=== PATIENT | female | born 1985 | race Caucasian/White ===

== ENCOUNTER → 2017-02-24 | Outpatient (CLI) | payer OTHER ==
--- NOTE | 2017-02-24 10:09 | MR ---
EXAMINATION TYPE: MR brain wo con DATE OF EXAM: 02/24/2017 7:47 AM COMPARISON: No prior. HISTORY: Migraine without aura, not intractable TECHNIQUE: Multiplanar, multisequence images of the brain and brainstem is performed without the utilization of intravenous contrast. FINDINGS: Diffusion weighted images demonstrate no evidence of a recent infarct or other diffusion ab normality. There is no extra-axial fluid collection or significant white matter signal abnormality. A T2 hyperintense circular left pontine 3 mm area is present that drops peripheral signal on FLAIR im aging compatible with a prominent perivascular space. The ventricular system and cisternal spaces are normal in size and appearance. The brain volume is age appropriate. Midline structures demonstrate normal morphology. The craniocervical junction appears within normal limits. Mucosal thickening is seen within the left maxillary sinus, moderate in degree, and mild in degree of the right maxillary sinus and ethmoid sinuses as well as the left frontal sinus. Mastoid ai r cells are well aerated. The dural venous sinuses appear patent. The globes are intact. IMPRESSION: 1. No evidence of intracranial hemorrhage, midline shift, or infarct. 2. Mild to moderate paranasal sinus disease.
== END | disposition home or self-care (01) ==
LOC: RADMRIMAIN 07:18
PROVIDERS: ATTEND Psychiatry & Neurology Neurology
DX: J32.0 Chronic maxillary sinusitis (principal); J32.1 Chronic frontal sinusitis; J32.2 Chronic ethmoidal sinusitis; G43.009 Migraine without aura, not intractable, without status migrainosus
CPT/HCPCS: 70551

== ENCOUNTER → 2019-03-18 | Outpatient (CLI) | payer OTHER ==
[2019-03-18 11:21] LABS: Basophils % (A) 0 %; Eosinophils # (A) 0.2 k/uL (0-0.7); Eosinophils % (A) 2 %; HCT 41.2 % (34.0-46.0); HGB 13.4 gm/dL (11.4-16.0); Lymphocytes # (A) 1.6 k/uL (1.0-4.8); Lymphocytes % (A) 22 %; MCH 30.1 pg (25.0-35.0); MCHC 32.6 g/dL (31.0-37.0); MCV 92.5 fL (80.0-100.0); Mean Platelet Volume 9.2; Monocytes # (A) 0.3 k/uL (0-1.0); Monocytes % (A) 4 %; Neutrophils # (A) 5.2 k/uL (1.3-7.7); Neutrophils % (A) 71 %; Platelet Count 151 k/uL (150-450); RBC 4.46 m/uL (3.80-5.40); RDW 14.9 % (11.5-15.5); WBC 7.4 k/uL (3.8-10.6)
== END | disposition home or self-care (01) ==
LOC: LABPAT 10:13
PROVIDERS: ATTEND Surgery
DX: Z01.818 Encounter for other preprocedural examination (principal); K43.2 Incisional hernia without obstruction or gangrene; F17.200 Nicotine dependence, unspecified, uncomplicated; Z01.812 Encounter for preprocedural laboratory examination
CPT/HCPCS: 36415; 85025; 86850; 86900; 86901; 93005

== ENCOUNTER 2019-03-28 08:45 | Day surgery (SDC) | payer OTHER ==
[2019-03-25 15:35] VITALS: BMI 31.9
[~2019-03-28 08:45] MED LIST: DEXAMETHASONE SOD PHOSPHATE 10 MG/ML 1 ML VIAL IV ONE; HEPARIN SODIUM,PORCINE 5,000 UNIT/ML 1 ML VIAL SQ ONE; LACTATED RINGERS 1,000 ML IV SCH; LIDOCAINE 1% 20 ML VIAL (10MG/ML) FOR IV START INTRADERMA PRN; ONDANSETRON 4 MG/2 ML VIAL IVP ONE; SCOPOLAMINE 1.5MG/72HR PATCH TRANSDERM ONE; ceFAZolin IN SWFI 2 GM/20 ML SYRINGE IVP ONE
--- NOTE | 2019-03-28 10:27 | P.GSHP ---
History of Present Illness H&P Date: 03/28/19 Chief Complaint: Incisional hernia 34-year-old female known to our service. Patient has a history of previous laparoscopic repair of an umbilical hernia. This apparently recurred and was repaired primarily following that. She has had mesh utilized. The patient was noticing increased bulging above the umbilicus. Was seen in the office. She had a confirmed recurrent hernia in that area. Mild pain at times. Was previously scheduled but then canceled. Past Medical History Past Medical History: Asthma Additional Past Medical History / Comment(s): ASTHMA WELL CONTROLLED AT THIS TIME History of Any Multi-Drug Resistant Organisms: None Reported Past Surgical History: Breast Surgery, Section, Hernia Repair Additional Past Surgical History / Comment(s): HERNIA X 2. C-SEC X 3. LT BREAST TUMOR REMOVED-BENIGN. BILAT WRIST GANGLION CYSTECTOMY. CYSTS REMOVED FROM OVARY Past Anesthesia/Blood Transfusion Reactions: No Reported Reaction Smoking Status: Former smoker - Past Family History Mother Family Medical History: No Reported History Medications and Allergies Home Medications Medication Instructions Recorded Confirmed Type Albuterol Inhaler [Ventolin Hfa 2 puff INHALATION QID PRN 03/25/19 03/28/19 History Inhaler] Allergies Allergy/AdvReac Type Severity Reaction Status Date / Time No Known Allergies Allergy Verified 03/25/19 15:17 Surgical - Exam Vital Signs Temp Pulse Resp BP Pulse Ox 98.1 F 75 16 145/67 98 03/28/19 09:17 03/28/19 09:17 03/28/19 09:17 03/28/19 09:17 03/28/19 09:17 Physical exam: General: Well-developed, well-nourished HEENT: Normocephalic, sclerae nonicteric Abdomen: Nontender, nondistended, reducible incisional hernia above umbilicus Extremities: No edema Neuro: Alert and oriented Assessment and Plan (1) Incisional hernia Narrative/Plan: Will proceed with open repair incisional hernia with mesh. Risks of bleeding, infection, recurrence, bladder and bowel injury, numbness, nerve injury, conversion to an open procedure were discussed with the patient. The patient understands and wishes to proceed. Current Visit: Yes Status: Acute Code(s): K43.2 - INCISIONAL HERNIA WITHOUT OBSTRUCTION OR GANGRENE SNOMED Code(s): 157637260
[2019-03-28] MEDS ORDERED: fentaNYL (PF) 50 MCG/ML 2 ML AMP ONE (11:41)
[2019-03-28] MEDS ORDERED: PROPOFOL 10 MG/ML 20 ML VIAL IV ONE (11:41)
[2019-03-28] MEDS ORDERED: HYDROmorphone (PF) 1 MG/ML ONE (11:41)
[2019-03-28] MEDS ORDERED: NEOSTIGMINE 1 MG/ML 10 ML VIAL ONE (11:41)
[2019-03-28] MEDS ORDERED: GLYCOPYRROLATE 0.2 MG/ML 2 ML VIAL ONE (11:41)
[2019-03-28] MEDS ORDERED: SUCCINYLCHOLINE CHLORIDE 100 MG/5 ML SYR IV ONE (11:41)
[2019-03-28] MEDS ORDERED: ROCURONIUM BROMIDE 10 MG/ML 10 ML VIAL IV ONE (11:41)
[2019-03-28] MEDS ORDERED: LIDOCAINE 1% INJ 10MG/ML (20 ML MDV) ONE (11:41)
[2019-03-28] MEDS ORDERED: LACTATED RINGERS 1,000 ML IV ONE (12:28)
[2019-03-28] MEDS ORDERED: HYDROcodone/APAP 5-325MG 1 EACH TAB PO PRN (13:13)
[2019-03-28] MEDS ORDERED: NALOXONE 0.4 MG/ML 1 ML VIAL IV PRN (13:13)
[2019-03-28 13:19] VITALS: TEMP 98.8
--- NOTE | 2019-03-28 13:21 | P.OP ---
Date of Procedure: 03/28/19 Procedure(s) Performed: PREOPERATIVE DIAGNOSIS: Recurrent incisional hernia POSTOPERATIVE DIAGNOSIS: Same PROCEDURE: Recurrent incisional hernia with mesh SURGEON: Debbi EBL: Minimal ANESTHESIA: Gen. COMPLICATIONS: None OPERATIVE PROCEDURE: Patient placed on the operating table in the supine position. Abdomen was prepped and draped in usual sterile fashion. The previous incision was re-incised and extended to the left of the umbilicus. Dissection through the subcutaneous tissues took place using electrocautery. The fascia was cleared circumferentially. The patient had a total of 3 fascial defects. The umbilical attachments were freed and at the base of the umbilicus was a single defect measuring less than 1 cm. There was evidence of previous repair with multiple Ethibond sutures superior to the umbilicus. In that region there were 2 defects present with a diameter of approximately 1.5-2 cm. There was a thin bridge of fascia that was attenuated between the 2 defects which was divided. This was opened so that we had a single defect to deal with. The preperitoneal space was dissected using blunt dissection and electrocautery. The patient's previous mesh was palpable beneath the peritoneal fat. Once I had space in the preperitoneal space for mesh placement a 6.4 cm ventral ex mesh was placed beneath the fascia. This was sutured to the fascia using trans-fascial 0 Ethibond sutures. The fascia was then reapproximated using interrupted [id number] 0 Ethibond sutures at the umbilicus and vest over pants mattress sutures horizontally at the supraumbilical fascial defect site. The folding edge was reapproximated as well using 0 Ethibond sutures. The area was then irrigated. The umbilical attachments were re-sewn to the fascia using 3-0 Vicryl sutures. The subcutaneous tissues were closed using 3-0 Vicryl sutures. The skin was closed using 4-0 Monocryl sutures. Skin glue and sterile dressings were applied. DISPOSITION: Stable to recovery room
[2019-03-28] MEDS ORDERED: diphenhydrAMINE 50 MG/ML 1 ML VIAL IVP ONE (13:35)
[2019-03-28] MEDS: HYDROmorphone 0.5 MG/0.5 ML SYRINGE IVP PRN ×2 (13:48→13:53)
[2019-03-28 14:04] VITALS: RESP 16
[2019-03-28] MEDS ORDERED: HYDROcodone/APAP 5-325MG 1 EACH TAB PO ONE (14:12)
[2019-03-28 14:18] VITALS: BP 112/67; PULSE 64
== END 2019-03-28 14:52 | disposition home or self-care (01) ==
LOC: OR 08:45
PROVIDERS: ATTEND Surgery
DX: K43.0 Incisional hernia with obstruction, without gangrene (principal); Z87.891 Personal history of nicotine dependence; Z79.899 Other long term (current) drug therapy; J44.9 Chronic obstructive pulmonary disease, unspecified; K21.9 Gastro-esophageal reflux disease without esophagitis
CPT/HCPCS: 81025; 88302; 49566; 49568; C1781; J1200; J1644; J1100; J2710; J2405; J2001; J3010; J1170 ×2; J0330; J2704; J0690

== ENCOUNTER → 2019-09-23 | Outpatient (CLI) | payer OTHER ==
--- NOTE | 2019-09-23 11:20 | USB ---
Reason for exam: clinical finding. Indicated problem(s): lump or thickening in the left breast. Physical Findings: Nurse Summary: patient states tender left outer breast, states she cannot feel lump but her doctor felt it (nurse TM). US Breast LT Left complete breast ultrasound includes all four quadrants, the retroareolar region and axilla. Finding demonstrates no cystic or solid lesion seen. These results were verbally communicated with the patient and result sheet given to the patient on 09/23/19. ASSESSMENT: Negative, BI-RAD 1 RECOMMENDATION: Routine screening mammogram of both breasts at age 40. Manage patient on a clinical basis.
== END | disposition home or self-care (01) ==
LOC: RADUSWWP 09:43
PROVIDERS: ATTEND Family Medicine
DX: N64.52 Nipple discharge (principal); N63.21 Unspecified lump in the left breast, upper outer quadrant

== ENCOUNTER → 2021-02-14 | Outpatient (CLI) | payer OTHER | END | disposition home or self-care (01) | LOC: LABWHC1 15:51 | PROVIDERS: ATTEND Family Medicine | DX: Z20.822 Contact with and (suspected) exposure to COVID-19 (principal) | CPT/HCPCS: 87635; C9803 ==

== ENCOUNTER → 2021-02-21 | Outpatient (CLI) | payer OTHER | END | disposition home or self-care (01) | LOC: LABWHC1 11:42 | PROVIDERS: ATTEND Family Medicine | DX: Z20.822 Contact with and (suspected) exposure to COVID-19 (principal); R43.2 Parageusia; R43.0 Anosmia ==

== ENCOUNTER 2023-04-16 23:51 | Emergency (ER) | payer OTHER ==
[2023-04-17] MEDS ORDERED: ACETAMINOPHEN TAB 325 MG TAB PO STA (00:16)
--- NOTE | 2023-04-17 01:17 | XR ---
EXAM: XR Right Ankle Complete, 3 or More Views CLINICAL HISTORY: ITS.REASON XR Reason: r anle pain TECHNIQUE: Frontal, lateral and oblique views of the right ankle. COMPARISON: No relevant prior studies available. FINDINGS: Bones/joints: No acute osseous abnormalities. Soft tissues: Lateral soft tissue swelling. IMPRESSION: Lateral soft tissue swelling. No underlying acute osseous abnormality.
--- NOTE | 2023-04-17 01:30 | ED ---
General Adult HPI - General Chief complaint: Extremity Injury, Lower Stated complaint: POSSIBLE BROKEN RIGHT ANKLE Time Seen by Provider: 04/16/23 23:57 Source: family, RN notes reviewed Mode of arrival: wheelchair Limitations: no limitations - History of Present Illness Initial comments: 38-year-old female with no significant past medical history presents the emergency department with a chief complaint of right ankle pain. Patient reports that she was going down stairs encouraged. She is complaining of right ankle pain and swelling. She denies hitting her head, loss of consciousness, anticoagulant use. She took percocet prior to arrival. Denies numbness, tingling, weakness in the extremity. - Related Data Home Medications Medication Instructions Recorded Confirmed Albuterol Inhaler [Ventolin Hfa 2 puff INHALATION QID PRN 03/25/19 03/28/19 Inhaler] Previous Rx's Medication Instructions Recorded Hydrocodone/Acetaminophen [[place] 1 tab PO Q6HR PRN 3 Days #12 tab 03/28/19 5-325] Allergies Allergy/AdvReac Type Severity Reaction Status Date / Time No Known Allergies Allergy Verified 04/16/23 23:56 Review of Systems ROS Statement: Those systems with pertinent positive or pertinent negative responses have been documented in the HPI. ROS Other: All systems not noted in ROS Statement are negative. Past Medical History Past Medical History: Asthma Additional Past Medical History / Comment(s): ASTHMA WELL CONTROLLED AT THIS TIME History of Any Multi-Drug Resistant Organisms: None Reported Past Surgical History: Breast Surgery, Section, Hernia Repair Additional Past Surgical History / Comment(s): HERNIA X 2. C-SEC X 3. LT BREAST TUMOR REMOVED-BENIGN. BILAT WRIST GANGLION CYSTECTOMY. CYSTS REMOVED FROM OVARY Past Anesthesia/Blood Transfusion Reactions: No Reported Reaction Past Psychological History: Anxiety Smoking Status: Never smoker Past Alcohol Use History: Occasional Past Drug Use History: Marijuana - Past Family History Mother Family Medical History: No Reported History General Exam - General Exam Comments Initial Comments: General: Alert, in no acute distress Head: atraumatic normocephalic. Eyes PERRL, EOMI intact, mucous membranes moist Respiratory: Lungs clear to auscultation bilaterally Cardiovascular: Rate regular rate and rhythm Abdominal: Soft without guarding or rebound Extremities: Normal inspection with full range of motion and normal capillary refill, right ankle with mild swelling to lateral malleolus region. Limited range of motion secondary to pain. DP/PT pulses. Distal NVI remains intact Neuroogic: alert and oriented 3, CN II-XII intact, able to ambulate with steady gait Skin: warm dry and intact with normal color Limitations: no limitations Course Vital Signs 04/16/23 23:53 Temperature 97.9 F Pulse Rate 78 Respiratory 18 Rate Blood Pressure 115/72 O2 Sat by Pulse 96 Oximetry Medical Decision Making - Medical Decision Making Was pt. sent in by a medical professional or institution ([facility]IG[facility] Gonzales, [employer]IENT [employer] DES[employer]ER, urgent ca re, hospital, or [facility]...) When possible be specific @ -[No] Did you speak to anyone other than the patient for history (EMS, parent, family, police, friend...)? What history was obtained from this source @ -[No] Did you review nursing and triage notes (agree or disagree)? Why? @ -[I reviewed and agree with nursing and triage notes] Were old charts reviewed (outside hosp., previous admission, EMS record, old EKG, old radiological studies, urgent care reports/EKG's, [facility] records)? Report findings @ -[No old charts were reviewed] Differential Diagnosis (chest pain, altered mental status, abdominal pain women, abdominal pain men, vaginal bleeding, weakness, fever, dyspnea, syncope, headache, dizziness, GI bleed, back pain, seizure, CVA, palpatations, mental health, musculoskeletal)? @ -[not applicable] EKG interpreted by me (3pts min.). @ -[As above] X-rays interpreted by me (1pt min.). @ -Right equal x-ray negative for any evidence of fracture or dislocation CT interpreted by me (1pt min.). @ -[None done] U/S interpreted by me (1pt. min.). @ -[None done] What testing was considered but not performed or refused? (CT, X-rays, U/S, labs)? Why? @ -[None] What meds were considered but not given or refused? Why? @ -[None] Did you discuss the management of the patient with other professionals (professionals i.e. RIGO Gonzales, F[employer] E[employer]IENT [employer]CRAFT DESIGNER, lab, RT, psych nurse, social worker assistant, auto driver, teacher, animal control officer, machine adjuster leader case trim)? Give summary @ -[No] Was smoking cessation discussed for >3mins.? @ -[No] Was critical care preformed (if so, how long)? @ -[No] Were there social determinants of health that impacted care today? How? (Homelessness, low income, unemployed, alcoholism, drug addiction, transportation, low edu. Level, literacy, decrease access to med. care, usp, rehab)? @ -[No] Was there de-escalation of care discussed even if they declined (Discuss DNR or withdrawal of care, Hospice)? DNR status @ -[No] What co-morbidities impacted this encounter? (DM, HTN, Smoking, COPD, CAD, Cancer, CVA, ARF, Chemo, Hep., AIDS, mental health diagnosis, sleep apnea, morbid obesity)? @ -[None] Was patient admitted / discharged? Hospital course, mention meds given and route, prescriptions, significant lab abnormalities, going to OR and other pertinent info. @ -Discharged. This is a 38-year-old female who presents the emergency department with right ankle pain. Patient had a thorough history and physical exam performed on the ED. Heart rate regular rate and rhythm, lungs clear to auscultation bilaterally, abdomen soft nontender. Right ankle lateral malleolus swelling. 2+ DP/PT pulses. Patient had imaging which was essentially negative. Patient was given Tylenol and symptomatic relief. I discussed the results in detail with the patient verbalized understanding and all questions were addressed. Return precautions were discussed at length. She will be discharged in stable condition. Case discussed with SANDIE Thacker who agrees with plan of care Undiagnosed new problem with uncertain prognosis? @ -[No] Drug Therapy requiring intensive monitoring for toxicity (Heparin, Nitro, Insulin, Cardizem)? @ -[No] Were any procedures done? @ -[No] Diagnosis/symptom? @ -Right ankle pain Acute, or Chronic, or Acute on Chronic? @ -Acute Uncomplicated (without systemic symptoms) or Complicated (systemic symptoms)? @ -Uncomplicated Side effects of treatment? @ -[No] Exacerbation, Progression, or Severe Exacerbation? @ -[No] Poses a threat to life or bodily function? How? (Chest pain, [place], [place], pneumonia, PE, COPD, DKA, ARF, appy, cholecystitis, CVA, Diverticulitis, Homicidal, Suicidal, threat to staff... and all critical care pts) @ -Low likelihood Disposition Clinical Impression: Ankle pain Disposition: HOME SELF-CARE Condition: Stable Instructions (If sedation given, give patient instructions): Ankle Sprain (ED) Additional Instructions: Please return to the nearest emergency department if symptoms worsen or persist Is patient prescribed a controlled substance at d/c from ED?: No Referrals: Giovanny Torres MD [Primary Care Provider] - 1-2 days Time of Disposition: 01:27
[2023-04-17 01:48] VITALS: BP 112/78; PULSE 75; RESP 20; TEMP 98.3
== END 2023-04-17 01:47 | disposition home or self-care (01) ==
LOC: EC 23:51
DX: M25.571 Pain in right ankle and joints of right foot (principal); J45.909 Unspecified asthma, uncomplicated; F12.90 Cannabis use, unspecified, uncomplicated; Z79.899 Other long term (current) drug therapy; W01.0XXA Fall on same level from slipping, tripping and stumbling without subsequent striking against object, initial encounter
CPT/HCPCS: 99283

== ENCOUNTER 2024-03-15 11:26 | Emergency (ER) | payer OTHER ==
[2024-03-15 12:02] VITALS: RESP 18
--- NOTE | 2024-03-15 12:53 | ED ---
Recheck HPI - General Chief Complaint: Recheck/Abnormal Lab/Rx Stated Complaint: high blood pressure Time Seen by Provider: 03/15/24 12:02 Source: patient, family, RN notes reviewed Mode of arrival: ambulatory Limitations: no limitations - History of Present Illness Initial Comments: This is a 39-year-old female who presents to the emergency department for elevated blood pressure. Patient had a follow-up appointment with her primary care provider a few days ago and during that appointment her blood pressure was found to be elevated. She was not started on any medication but was advised to keep track of it at home and has a follow-up scheduled in 2 weeks to have this reevaluated. States that at home her blood pressure has been in the 170s systo lically. She called the office today with that value and was advised to come to the emergency department for evaluation. Reports intermittent back pain but denies any headaches or chest pain. States that the back pain has been a fpc issue for several weeks. Also denies any visual changes. Denies a history of elevated blood pressure. - Related Data Home Medications Medication Instructions Recorded Confirmed Albuterol Inhaler [Ventolin Hfa 2 puff INHALATION QID PRN 03/25/19 03/28/19 Inhaler] Previous Rx's Medication Instructions Recorded Hydrocodone/Acetaminophen [[place] 1 tab PO Q6HR PRN 3 Days #12 tab 03/28/19 5-325] amLODIPine [Norvasc] 5 mg PO DAILY #30 tab 03/15/24 Allergies Allergy/AdvReac Type Severity Reaction Status Date / Time No Known Allergies Allergy Verified 03/15/24 11:34 Review of Systems ROS Statement: Those systems with pertinent positive or pertinent negative responses have been documented in the HPI. ROS Other: All systems not noted in ROS Statement are negative. Past Medical History Past Medical History: Asthma Additional Past Medical History / Comment(s): ASTHMA WELL CONTROLLED AT THIS TIME History of Any Multi-Drug Resistant Organisms: None Reported Past Surgical History: Breast Surgery, Section, Hernia Repair Additional Past Surgical History / Comment(s): HERNIA X 2. C-SEC X 3. LT BREAST TUMOR REMOVED-BENIGN. BILAT WRIST GANGLION CYSTECTOMY. CYSTS REMOVED FROM OVARY Past Anesthesia/Blood Transfusion Reactions: No Reported Reaction Past Psychological History: Anxiety Smoking Status: Never smoker Past Alcohol Use History: Occasional Past Drug Use History: Marijuana - Past Family History Mother Family Medical History: No Reported History General Exam Limitations: no limitations General appearance: alert, in no apparent distress Head exam: Present: atraumatic, normocephalic, normal inspection Eye exam: Present: normal appearance, PERRL, EOMI. Absent: scleral icterus, conjunctival injection, periorbital swelling Respiratory exam: Present: normal lung sounds bilaterally. Absent: respiratory distress, wheezes, rales, rhonchi, stridor Cardiovascular Exam: Present: regular rate, normal rhythm, normal heart sounds. Absent: systolic murmur, diastolic murmur, rubs, gallop, clicks Extremities exam: Present: other (2+ DP and PT pulses bilaterally) Neurological exam: Present: alert, oriented X3, CN II-XII intact Psychiatric exam: Present: normal affect, normal mood Skin exam: Present: warm, dry, intact, normal color. Absent: rash Course Vital Signs 03/15/24 03/15/24 03/15/24 11:30 12:27 12:28 Temperature 98.3 F Pulse Rate 90 Pulse Rate [ Apical] Respiratory 18 18 Rate Blood Pressure 176/136 167/123 O2 Sat by Pulse 98 Oximetry 03/15/24 03/15/24 03/15/24 12:31 15:18 15:54 Temperature 98.1 F Pulse Rate 71 78 Pulse Rate [ 87 Apical] Respiratory 18 18 Rate Blood Pressure 180/107 162/104 O2 Sat by Pulse 96 98 Oximetry Medical Decision Making - Medical Decision Making This is a 39 year old female who presents to the emergency department for elevated blood pressure. Was pt. sent in by a medical professional or institution? @ -Her PCP Did you speak to anyone other than the patient for history? @ -No Did you review nursing and triage notes? @ -Yes, and I agree, it is accurate with regards to the patient's symptoms. Were old charts reviewed? @ -No Differential Diagnosis? @ -Differential Elevated Blood Pressure: Kidney disease, DM, medications, dietary intake, this is not meant to be an all- inclusive list. EKG interpreted by me (3pts min.)? @ -EKG interpreted by me demonstrating the following: Sinus rhythm. Ventricular rate 78 bpm, OH interval 150 ms, QRS duration 81 ms, QTc 395 ms. X-rays interpreted by me (1pt min.)? @ -Not obtained CT interpreted by me (1pt min.)? @ -Not obtained U/S interpreted by me (1pt. min.)? @ -Not obtained What testing was considered but not performed? (CT, X-rays, U/S, labs)? Why? @ -None What meds were considered but not given? Why? @ -None Did you discuss the management of the patient with other professionals? @ -No Did you reconcile home meds? @ -No Was smoking cessation discussed for >3mins.? @ -No Was critical care preformed (if so, how long)? @ -No Were there social determinants of health that impacted care today? How? (Homelessness, low income, unemployed, alcoholism, drug addiction, transportation, low edu. Level, literacy, decrease access to med. care, halfway, rehab)? @ -No Was there de-escalation of care discussed even if they declined? (Discuss DNR or withdrawal of care, Hospice)? @ -No What co-morbidities impacted this encounter? (DM, HTN, Smoking, COPD, CAD, Cancer, CVA, Hep., AIDS, mental health diagnosis, sleep apnea, morbid obesity)? @ -Asthma Was patient admitted / discharged? @ -Discharged. Lab work demonstrates mild leukocytosis and was otherwise unremarkable. D-dimer and troponin negative. Urinalysis negative for signs of infection. Patient has 2+ DP/PT pulses in the bilateral lower extremities. Blood pressure was 176/136 on arrival. She was given 20 mg of labetalol along with 5 mg of amlodipine. Blood pressure at the point of discharge was 162/104. Discussed with the patient starting her on a blood pressure medication on an outpatient basis. Patient was in agreement with this. Prescription for amlodipine provided with dosing instructions reviewed. She is advised to continue monitoring her blood pressure at home several times each day and I advised keeping a log of these values to bring with her to her to her follow up appointment with her PCP. Patient discharged home in stable condition. Undiagnosed new problem with uncertain prognosis? @ -None Drug Therapy requiring intensive monitoring for toxicity (Heparin, Nitro, Insulin, Cardizem)? @ -None Were any procedures done? @ -None Diagnosis/symptom? @ -Hypertension Acute, or Chronic, or Acute on Chronic? @ -Acute Uncomplicated (without systemic symptoms) or Complicated (systemic symptoms)? @ -Uncomplicated Side effects of treatment? @ -None Exacerbation, Progression, or Severe Exacerbation] @ -Not applicable Poses a threat to life or bodily function? @ -Not at this time, however if her BP does not begin to improve, it increases her risk for heart attacks and strokes. Return precautions reviewed in depth, the patient is instructed to return to the emergency department with any new, worsening, or concerning symptoms. Patient verbalized understanding. This case was discussed in detail with the attending ED physician, Dr. Trevizo. Presentation, findings, and treatment plan discussed in detail as well. - Lab Data Result diagrams: 03/15/24 13:09 03/15/24 13:09 Lab Results 03/15/24 03/15/24 03/15/24 Range/Units 13:09 13:09 13:09 WBC 12.1 H (3.8-10.6) k/uL RBC 4.48 (3.80-5.40) m/uL Hgb 13.8 (11.4-16.0) gm/dL Hct 41.7 (34.0-46.0) % MCV 92.9 (80.0-100.0) fL MCH 30.9 (25.0-35.0) pg MCHC 33.2 (31.0-37.0) g/dL RDW 14.0 (11.5-15.5) % Plt Count 209 (150-450) k/uL MPV 9.0 Neutrophils % 66 % Lymphocytes % 25 % Monocytes % 6 % Eosinophils % 3 % Basophils % 0 % Neutrophils # 7.9 H (1.3-7.7) k/uL Lymphocytes # 3.0 (1.0-4.8) k/uL Monocytes # 0.7 (0-1.0) k/uL Eosinophils # 0.3 (0-0.7) k/uL Basophils # 0.1 (0-0.2) k/uL PT (10.0-12.5) sec INR (<1.2) APTT (22.0-30.0) sec D-Dimer (<0.60) mg/L FEU Sodium (137-145) mmol/L Potassium (3.5-5.1) mmol/L Chloride (98-107) mmol/L Carbon Dioxide (22-30) mmol/L Anion Gap mmol/L BUN (7-17) mg/dL Creatinine (0.52-1.04) mg/dL Est GFR (CKD-EPI)AfAm (>60 ml/min/1.73 sqM) Est GFR (CKD-EPI)NonAf (>60 ml/min/1.73 sqM) Glucose (74-99) mg/dL Calcium (8.4-10.2) mg/dL Magnesium (1.6-2.3) mg/dL Total Bilirubin (0.2-1.3) mg/dL AST (14-36) U/L ALT (4-34) U/L Alkaline Phosphatase (38-126) U/L Troponin I (0.000-0.034) ng/mL Total Protein (6.3-8.2) g/dL Albumin (3.5-5.0) g/dL TSH (0.465-4.680) mIU/L Urine Color Colorless Urine Appearance Clear (Clear) Urine pH 6.5 (5.0-8.0) Ur Specific [place] 1.018 (1.001-1.035) Urine Protein Negative (Negative) Urine Glucose (UA) Negative (Negative) Urine Ketones Negative (Negative) Urine Blood Negative (Negative) Urine Nitrite Negative (Negative) Urine Bilirubin Negative (Negative) Urine Urobilinogen <2.0 (<2.0) mg/dL Ur Leukocyte Esterase Negative (Negative) Urine HCG, Qual Not Detected (Not Detectd) 03/15/24 03/15/24 03/15/24 Range/Units 13:09 13:09 14:34 WBC (3.8-10.6) k/uL RBC (3.80-5.40) m/uL Hgb (11.4-16.0) gm/dL Hct (34.0-46.0) % MCV (80.0-100.0) fL MCH (25.0-35.0) pg MCHC (31.0-37.0) g/dL RDW (11.5-15.5) % Plt Count (150-450) k/uL MPV Neutrophils % % Lymphocytes % % Monocytes % % Eosinophils % % Basophils % % Neutrophils # (1.3-7.7) k/uL Lymphocytes # (1.0-4.8) k/uL Monocytes # (0-1.0) k/uL Eosinophils # (0-0.7) k/uL Basophils # (0-0.2) k/uL PT 11.1 (10.0-12.5) sec INR 1.0 (<1.2) APTT 23.4 (22.0-30.0) sec D-Dimer <0.17 (<0.60) mg/L FEU Sodium 138 (137-145) mmol/L Potassium 4.4 (3.5-5.1) mmol/L Chloride 104 (98-107) mmol/L Carbon Dioxide 25 (22-30) mmol/L Anion Gap 9 mmol/L BUN 15 (7-17) mg/dL Creatinine 0.59 (0.52-1.04) mg/dL Est GFR (CKD-EPI)AfAm >90 (>60 ml/min/1.73 sqM) Est GFR (CKD-EPI)NonAf >90 (>60 ml/min/1.73 sqM) Glucose 84 (74-99) mg/dL Calcium 9.2 (8.4-10.2) mg/dL Magnesium 1.6 (1.6-2.3) mg/dL Total Bilirubin 0.5 (0.2-1.3) mg/dL AST 21 (14-36) U/L ALT 29 (4-34) U/L Alkaline Phosphatase 64 (38-126) U/L Troponin I <0.012 (0.000-0.034) ng/mL Total Protein 6.9 (6.3-8.2) g/dL Albumin 4.3 (3.5-5.0) g/dL TSH 3.860 (0.465-4.680) mIU/L Urine Color Urine Appearance (Clear) Urine pH (5.0-8.0) Ur Specific [place] (1.001-1.035) Urine Protein (Negative) Urine Glucose (UA) (Negative) Urine Ketones (Negative) Urine Blood (Negative) Urine Nitrite (Negative) Urine Bilirubin (Negative) Urine Urobilinogen (<2.0) mg/dL Ur Leukocyte Esterase (Negative) Urine HCG, Qual (Not Detectd) Disposition Clinical Impression: Hypertension Disposition: HOME SELF-CARE Instructions (If sedation given, give patient instructions): Hypertension (ED) Additional Instructions: Return to the emergency department with any new, worsening, or concerning symptoms. Begin taking the amlodipine once daily. Take your first dose tomorrow, as you received a dose in the emergency department today. Check your blood pressure several times a day and keep a log of these values to bring with you to your appointment with your primary care provider in 2 weeks. Prescriptions: amLODIPine [Norvasc] 5 mg PO DAILY #30 tab Is patient prescribed a controlled substance at d/c from ED?: No Referrals: Giovanny Torres MD [Primary Care Provider] - 1-2 days Time of Disposition: 15:47
[2024-03-15 13:39] LABS: Basophils # (A) 0.1 k/uL (0-0.2); Basophils % (A) 0 %; Eosinophils # (A) 0.3 k/uL (0-0.7); Eosinophils % (A) 3 %; HCT 41.7 % (34.0-46.0); HGB 13.8 gm/dL (11.4-16.0); Lymphocytes % (A) 25 %; MCH 30.9 pg (25.0-35.0); MCHC 33.2 g/dL (31.0-37.0); MCV 92.9 fL (80.0-100.0); Monocytes # (A) 0.7 k/uL (0-1.0); Monocytes % (A) 6 %; Neutrophils # (A) 7.9 k/uL (1.3-7.7); Neutrophils % (A) 66 %; Platelet Count 209 k/uL (150-450); RBC 4.48 m/uL (3.80-5.40); WBC 12.1 k/uL (3.8-10.6)
[2024-03-15 14:01] LABS: Appearance,Urine Clear (Clear); Bilirubin,Urine Negative (Negative); Blood,Urine Negative (Negative); Color,Urine Colorless; Glucose,Urine (UA) Negative (Negative); Ketones,Urine Negative (Negative); Leukocyte Esterase,Urine Negative (Negative); Nitrite,Urine Negative (Negative); PH, Urine 6.5 (5.0-8.0); Protein,Urine Negative (Negative); Specific Gravity,Urine 1.018 (1.001-1.035); Urobilinogen,Urine <2.0 mg/dL (<2.0)
[2024-03-15 14:04] LABS: ALT 29 U/L (4-34); AST 21 U/L (14-36); African American GFR (CKD) >90 (>60 ml/min/1.73 sqM); Albumin 4.3 g/dL (3.5-5.0); Alkaline Phosphatase 64 U/L (38-126); Anion Gap 9 mmol/L; Blood Urea Nitrogen 15 mg/dL (7-17); Calcium 9.2 mg/dL (8.4-10.2); Carbon Dioxide 25 mmol/L (22-30); Chloride 104 mmol/L (98-107); Glucose 84 mg/dL (74-99); Magnesium 1.6 mg/dL (1.6-2.3); Non-African American GFR(CKD) >90 (>60 ml/min/1.73 sqM); Potassium 4.4 mmol/L (3.5-5.1); Sodium 138 mmol/L (137-145); Total Bilirubin 0.5 mg/dL (0.2-1.3); Total Protein 6.9 g/dL (6.3-8.2)
[2024-03-15] MEDS: ALBUTEROL HFA INHALER INHALATION STA (14:30)
[2024-03-15] MEDS: LABETALOL 5 MG/ML VIAL MDV IVP STA (14:40)
[2024-03-15 15:10] LABS: Partial Thromboplastin Time 23.4 sec (22.0-30.0); Prothrombin Time 11.1 sec (10.0-12.5)
[2024-03-15] MEDS: amLODIPine 5 MG TAB PO STA (15:18)
[2024-03-15 16:05] VITALS: BP 162/104; PULSE 78
[2024-03-15 16:06] VITALS: TEMP 98.1
== END 2024-03-15 16:05 | disposition home or self-care (01) ==
LOC: EC 11:26
DX: I10 Essential (primary) hypertension (principal); J45.909 Unspecified asthma, uncomplicated; Z79.899 Other long term (current) drug therapy
CPT/HCPCS: 36415; 94640; 93005; 85379; 80053; 84443; 83735; 84484; 85025; 85610; 85730; 81003; 81025; 99284; 96374; J1920

== ENCOUNTER 2024-08-25 07:25 | Emergency (ER) | payer OTHER ==
--- NOTE | 2024-08-25 07:45 | ED ---
General Adult HPI - General Chief complaint: Shortness of Breath Stated complaint: SOB,fever Time Seen by Provider: 08/25/24 07:32 Source: patient, RN notes reviewed Mode of arrival: ambulatory Limitations: no limitations - History of Present Illness Initial comments: Patient is a pleasant 39-year-old female present to the emergency department not feeling well. Onset of symptoms was 4 days ago. Patient has congestion and cough and some difficulty breathing. Patient has known history of asthma. Patient has a son who was recently diagnosed with pneumonia. Patient has had fevers at home up to 103. - Related Data Home Medications Medication Instructions Recorded Confirmed Albuterol Inhaler [Ventolin Hfa 2 puff INHALATION QID PRN 03/25/19 03/28/19 Inhaler] Previous Rx's Medication Instructions Recorded Hydrocodone/Acetaminophen [[place] 1 tab PO Q6HR PRN 3 Days #12 tab 03/28/19 5-325] amLODIPine [Norvasc] 5 mg PO DAILY #30 tab 03/15/24 predniSONE [Deltasone] 20 mg PO BID #8 tab 08/25/24 Allergies Allergy/AdvReac Type Severity Reaction Status Date / Time No Known Allergies Allergy Verified 03/15/24 11:34 Review of Systems ROS Statement: Those systems with pertinent positive or pertinent negative responses have been documented in the HPI. ROS Other: All systems not noted in ROS Statement are negative. Constitutional: Reports: as per HPI, fever Eyes: Denies: eye pain ENT: Denies: ear pain Respiratory: Reports: as per HPI, cough, dyspnea, wheezes Cardiovascular: Denies: chest pain Endocrine: Denies: fatigue Gastrointestinal: Denies: abdominal pain Musculoskeletal: Denies: back pain Skin: Denies: rash Past Medical History Past Medical History: Asthma, COPD Additional Past Medical History / Comment(s): ASTHMA WELL CONTROLLED AT THIS TIME, "stable spot on lung" History of Any Multi-Drug Resistant Organisms: None Reported Past Surgical History: Breast Surgery, Section, Hernia Repair Additional Past Surgical History / Comment(s): HERNIA X 2. C-SEC X 3. LT BREAST TUMOR REMOVED-BENIGN. BILAT WRIST GANGLION CYSTECTOMY. CYSTS REMOVED FROM OVARY Past Anesthesia/Blood Transfusion Reactions: No Reported Reaction Past Psychological History: Anxiety Smoking Status: Never smoker Past Alcohol Use History: Occasional Past Drug Use History: Marijuana - Past Family History Mother Family Medical History: No Reported History General Exam Limitations: no limitations General appearance: alert, in no apparent distress Head exam: Present: normocephalic Eye exam: Present: normal appearance Neck exam: Present: normal inspection. Absent: meningismus Respiratory exam: Present: wheezes Cardiovascular Exam: Present: regular rate, normal rhythm GI/Abdominal exam: Present: soft. Absent: tenderness Extremities exam: Present: normal inspection. Absent: pedal edema, calf tenderness Neurological exam: Present: alert Psychiatric exam: Present: normal affect, normal mood Skin exam: Present: normal color Course Vital Signs 08/25/24 08/25/24 08/25/24 07:27 07:30 08:48 Temperature 98.3 F Pulse Rate 105 H 98 91 Respiratory 20 20 Rate Blood Pressure 114/68 130/80 O2 Sat by Pulse 96 98 Oximetry 08/25/24 08/25/24 08:58 09:19 Temperature 98.7 F Pulse Rate 95 86 Respiratory 20 Rate Blood Pressure 143/89 O2 Sat by Pulse 98 Oximetry Medical Decision Making - Medical Decision Making Was pt. sent in by a medical professional or institution (Dr. PA, MANAGER CARDIOVASCULAR, urgent care, hospital, or custodial...) When possible be specific @ -No Did you speak to anyone other than the patient for history (EMS, parent, family, police, friend...)? What history was obtained from this source @ - is present and helps provide history including chronic lung disease Did you review nursing and triage notes (agree or disagree)? Why? @ -I reviewed and agree with nursing and triage notes Were old charts reviewed (outside hosp., previous admission, EMS record, old EKG, old radiological studies, urgent care reports/EKG's, custodial records)? Report findings @ -No old charts were reviewed Differential Diagnosis (chest pain, altered mental status, abdominal pain women, abdominal pain men, vaginal bleeding, weakness, fever, dyspnea, syncope, headache, dizziness, GI bleed, back pain, seizure, CVA, palpatations, mental health, musculoskeletal)? @ -Differential Dyspnea: Coronary syndrome, arrhythmia, tamponade, asthma, COPD, pulmonary embolism, pneumonia, pneumothorax, pulmonary effusion, anaphylaxis, diabetic ketoacidosis, flailed chest, pulmonary contusion, diaphragmatic rupture, anemia, neuromuscular, this is not meant to be an all-inclusive list. EKG interpreted by me (3pts min.). @ -As above X-rays interpreted by me (1pt min.). @ -Chest x-ray shows no infiltrate CT interpreted by me (1pt min.). @ -None done U/S interpreted by me (1pt. min.). @ -None done What testing was considered but not performed or refused? (CT, X-rays, U/S, labs)? Why? @ -None What meds were considered but not given or refused? Why? @ -Offered repeat nebulizer however patient refused Did you discuss the management of the patient with other professionals (professionals i.e. , PA, MANAGER CARDIOVASCULAR, lab, RT, psych nurse, social service assistant, ethnographic materials conservator, teacher, security flex officer, community case manager)? Give summary @ -No Was smoking cessation discussed for >3mins.? @ -No Was critical care preformed (if so, how long)? @ -No Were there social determinants of health that impacted care today? How? (Homelessness, low income, unemployed, alcoholism, drug addiction, transportation, low edu. Level, literacy, decrease access to med. care, long term, rehab)? @ -No Was there de-escalation of care discussed even if they declined (Discuss DNR or withdrawal of care, Hospice)? DNR status @ -No What co-morbidities impacted this encounter? (DM, HTN, Smoking, COPD, CAD, Cancer, CVA, ARF, Chemo, Hep., AIDS, mental health diagnosis, sleep apnea, morbid obesity)? @ -History of asthma Was patient admitted / discharged? Hospital course, mention meds given and route, prescriptions, significant lab abnormalities, going to OR and other pertinent info. @ -Patient presents with cough and concern for infectious process. Chest x-ray and viral testing unremarkable. Patient will be discharged with steroids and recommended follow-up. Patient reevaluated and feeling better however still has some wheezing. Offered repeat nebulizer however patient states she does not need that and will take it at home as needed. Undiagnosed new problem with uncertain prognosis? @ -No Drug Therapy requiring intensive monitoring for toxicity (Heparin, Nitro, Insulin, Cardizem)? @ -No Were any procedures done? @ -No Diagnosis/symptom? @ -Asthma exacerbation, bronchitis Acute, or Chronic, or Acute on Chronic? @ -Acute, acute Uncomplicated (without systemic symptoms) or Complicated (systemic symptoms)? @ -Default Side effects of treatment? @ -No Exacerbation, Progression, or Severe Exacerbation? @ -No Poses a threat to life or bodily function? How? (Chest pain, [place], [place], pneumonia, PE, COPD, DKA, ARF, appy, cholecystitis, CVA, Diverticulitis, Homicidal, Suicidal, threat to staff... and all critical care pts) @ -Threat to pulmonary function - Lab Data Lab Results 08/25/24 Range/Units 07:42 Influenza Type A (PCR) Not Detected (Not Detectd) Influenza Type B (PCR) Not Detected (Not Detectd) RSV (PCR) Not Detected (Not Detectd) SARS-CoV-2 (PCR) Not Detected (Not Detectd) Disposition Clinical Impression: Asthma, Bronchitis Disposition: HOME SELF-CARE Condition: Stable Instructions (If sedation given, give patient instructions): Asthma (ED), Acute Bronchitis (ED) Additional Instructions: Please do follow-up with your primary care physician in the next couple days for recheck. Prescription for steroids has been sent to pharmacy. Return for difficulty in breathing, fevers, worsening or changing symptoms or any other concerns. Prescriptions: predniSONE [Deltasone] 20 mg PO BID #8 tab Is patient prescribed a controlled substance at d/c from ED?: No Referrals: Giovanny Torres MD [Primary Care Provider] - 1-2 days Time of Disposition: 09:27
[2024-08-25] MEDS: ACETAMINOPHEN TAB 500 MG TAB PO STA (07:51)
--- NOTE | 2024-08-25 08:05 | XR ---
EXAMINATION TYPE: XR chest 2V DATE OF EXAM: 08/25/2024 COMPARISON: None HISTORY: 39-year-old female with cough, fever, chest congestion TECHNIQUE: PA and lateral views FINDINGS: Heart normal size. Mild peribronchial cuffing. Mild hyperinflation likely due to depth of inspiration . Tiny calcified granuloma right midlung. No consolidation or pleural effusion. IMPRESSION: Interstitial prominence and peribronchial cuffing. Correlate for bronchitis or asthma. No focal infil trate seen. [facility], , 08/25/2024 8:03 AM
[2024-08-25] MEDS: IPRATROPIUM-ALBUTEROL 3 ML NEB INHALATION STA (08:47)
[2024-08-25 09:19] VITALS: TEMP 98.7
[2024-08-25] MEDS ORDERED: predniSONE 50 MG TAB PO STA (09:24)
[2024-08-25 10:22] VITALS: BP 130/68; PULSE 68; RESP 16
== END 2024-08-25 10:22 | disposition home or self-care (01) ==
LOC: EC 07:25
DX: J45.909 Unspecified asthma, uncomplicated (principal)
CPT/HCPCS: 71046; 87636; 94640; 99285

== ENCOUNTER 2024-08-30 14:19 | Emergency (ER) | payer OTHER ==
[2024-08-30 14:34] VITALS: RESP 20; TEMP 98.7
--- NOTE | 2024-08-30 15:33 | ED ---
General Adult HPI - General Chief complaint: Chest Pain Stated complaint: Chest pain,NALDO Time Seen by Provider: 08/30/24 14:47 Source: patient, RN notes reviewed Mode of arrival: ambulatory Limitations: no limitations - History of Present Illness Initial comments: 39-year-old female presents to the emergency department for evaluation of cough, chest congestion. She states that this been going on for around 2 weeks but she has not seen any improvement in her symptoms. She was evaluated here about 1 week ago and was started on oral steroids. She denies any improvement with this. She admits to shortness of breath. She does have a past medical history of asthma and has been utilizing her nebulizer treatments and inhaler. She states she initially had fever which has resolved. - Related Data Home Medications Medication Instructions Recorded Confirmed Albuterol Inhaler [Ventolin Hfa 2 puff INHALATION QID PRN 03/25/19 03/28/19 Inhaler] Previous Rx's Medication Instructions Recorded Hydrocodone/Acetaminophen [[place] 1 tab PO Q6HR PRN 3 Days #12 tab 03/28/19 5-325] amLODIPine [Norvasc] 5 mg PO DAILY #30 tab 03/15/24 predniSONE [Deltasone] 20 mg PO BID #8 tab 08/25/24 Azithromycin [Zithromax Z Pack] 0 tab PO DIRECTED #6 tab 08/30/24 predniSONE 50 mg PO DAILY #5 tab 08/30/24 Allergies Allergy/AdvReac Type Severity Reaction Status Date / Time No Known Allergies Allergy Verified 08/30/24 14:34 Review of Systems ROS Statement: Those systems with pertinent positive or pertinent negative responses have been documented in the HPI. ROS Other: All systems not noted in ROS Statement are negative. Past Medical History Past Medical History: Asthma, COPD Additional Past Medical History / Comment(s): ASTHMA WELL CONTROLLED AT THIS TIME, "stable spot on lung" History of Any Multi-Drug Resistant Organisms: None Reported Past Surgical History: Breast Surgery, Section, Hernia Repair Additional Past Surgical History / Comment(s): HERNIA X 2. C-SEC X 3. LT BREAST TUMOR REMOVED-BENIGN. BILAT WRIST GANGLION CYSTECTOMY. CYSTS REMOVED FROM OVARY Past Anesthesia/Blood Transfusion Reactions: No Reported Reaction Past Psychological History: Anxiety Smoking Status: Never smoker Past Alcohol Use History: Occasional Past Drug Use History: Marijuana - Past Family History Mother Family Medical History: No Reported History General Exam Limitations: no limitations General appearance: alert, in no apparent distress Head exam: Present: atraumatic, normocephalic, normal inspection Eye exam: Present: normal appearance, PERRL, EOMI. Absent: scleral icterus, conjunctival injection, periorbital swelling ENT exam: Present: normal exam, mucous membranes moist Neck exam: Present: normal inspection. Absent: tenderness, meningismus, lymphadenopathy Respiratory exam: Present: wheezes, rhonchi Cardiovascular Exam: Present: regular rate, normal rhythm, normal heart sounds. Absent: systolic murmur, diastolic murmur, rubs, gallop, clicks Extremities exam: Present: normal inspection, full ROM, normal capillary refill. Absent: tenderness, pedal edema, joint swelling, calf tenderness Neurological exam: Present: alert, oriented X3 Psychiatric exam: Present: normal affect, normal mood Skin exam: Present: warm, dry, intact, normal color. Absent: rash Course Vital Signs 08/30/24 08/30/24 08/30/24 14:32 16:30 16:31 Temperature 98.7 F Pulse Rate 94 81 88 Respiratory 20 20 Rate Blood Pressure 127/89 O2 Sat by Pulse 95 95 Oximetry 08/30/24 08/30/24 16:39 18:12 Temperature Pulse Rate 78 81 Respiratory 20 Rate Blood Pressure 144/86 O2 Sat by Pulse 96 Oximetry Medical Decision Making - Medical Decision Making Was pt. sent in by a medical professional or institution ([facility], DIVE MASTER, urgent care, hospital, or [facility]...) When possible be specific @ -[No] Did you speak to anyone other than the patient for history (EMS, parent, family, police, friend...)? What history was obtained from this source @ -[No] Did you review nursing and triage notes (agree or disagree)? Why? @ -[I reviewed and agree with nursing and triage notes] Were old charts reviewed (outside hosp., previous admission, EMS record, old EKG, old radiological studies, urgent care reports/EKG's, [facility] records)? Report findings @ -[No old charts were reviewed] Differential Diagnosis (chest pain, altered mental status, abdominal pain women, abdominal pain men, vaginal bleeding, weakness, fever, dyspnea, syncope, headache, dizziness, GI bleed, back pain, seizure, CVA, palpatations, mental health, musculoskeletal)? @ -[Differential Dyspnea: Coronary syndrome, arrhythmia, tamponade, asthma, COPD, pulmonary embolism, pneumonia, pneumothorax, pulmonary effusion, anaphylaxis, diabetic ketoacidosis, flailed chest, pulmonary contusion, diaphragmatic rupture, anemia, neuromuscular, this is not meant to be an all-inclusive list. ] EKG interpreted by me (3pts min.). @ -EKG at 1444 shows sinus rhythm rate 90, DE 148, QRS 89, QTQTc 186409 X-rays interpreted by me (1pt min.). @ -[Chest x-ray shows no acute process] CT interpreted by me (1pt min.). @ -[None done] U/S interpreted by me (1pt. min.). @ -[None done] What testing was considered but not performed or refused? (CT, X-rays, U/S, labs)? Why? @ -[None] What meds were considered but not given or refused? Why? @ -[None] Did you discuss the management of the patient with other professionals (pr ofessionals i.e. , PA, DIVE MASTER, lab, RT, psych nurse, social service coordinator, manager night, teacher, complaint investigations officer, nurse outreach case manager)? Give summary @ -[No] Was smoking cessation discussed for >3mins.? @ -[No] Was critical care preformed (if so, how long)? @ -[No] Were there social determinants of health that impacted care today? How? (Homelessness, low income, unemployed, alcoholism, drug addiction, transportation, low edu. Level, literacy, decrease access to med. care, alf, rehab)? @ -[No] Was there de-escalation of care discussed even if they declined (Discuss DNR or withdrawal of care, Hospice)? DNR status @ -[No] What co-morbidities impacted this encounter? (DM, HTN, Smoking, COPD, CAD, Cancer, CVA, ARF, Chemo, Hep., AIDS, mental health diagnosis, sleep apnea, morbid obesity)? @ -[None] Was patient admitted / discharged? Hospital course, mention meds given and route, prescriptions, significant lab abnormalities, going to OR and other pertinent info. @ -[Discharged. Patient presented to the emergency department for evaluation of cough, congestion, shortness of breath. Patient has been experiencing this for around 3 weeks.] Undiagnosed new problem with uncertain prognosis? @ -[No] Drug Therapy requiring intensive monitoring for toxicity (Heparin, Nitro, Insulin, Cardizem)? @ -[No] Were any procedures done? @ -[No] Diagnosis/symptom? @ -[default] Acute, or Chronic, or Acute on Chronic? @ -[default] Uncomplicated (without systemic symptoms) or Complicated (systemic symptoms)? @ -[default] Side effects of treatment? @ -[No] Exacerbation, Progression, or Severe Exacerbation? @ -[No] Poses a threat to life or bodily function? How? (Chest pain, [place], [place], pneumonia, PE, COPD, DKA, ARF, appy, cholecystitis, CVA, Diverticulitis, Homicidal, Suicidal, threat to staff... and all critical care pts) @ -[No] - Lab Data Result diagrams: 08/30/24 15:58 08/30/24 15:58 Lab Results 08/30/24 08/30/24 08/30/24 Range/Units 15:58 15:58 15:58 WBC 12.2 H (3.8-10.6) k/uL RBC 4.55 (3.80-5.40) m/uL Hgb 14.0 (11.4-16.0) gm/dL Hct 42.0 (34.0-46.0) % MCV 92.3 (80.0-100.0) fL MCH 30.8 (25.0-35.0) pg MCHC 33.4 (31.0-37.0) g/dL RDW 13.8 (11.5-15.5) % Plt Count 211 (150-450) k/uL MPV 8.5 Neutrophils % 77 % Lymphocytes % 15 % Monocytes % 4 % Eosinophils % 3 % Basophils % 1 % Neutrophils # 9.4 H (1.3-7.7) k/uL Lymphocytes # 1.8 (1.0-4.8) k/uL Monocytes # 0.5 (0-1.0) k/uL Eosinophils # 0.4 (0-0.7) k/uL Basophils # 0.1 (0-0.2) k/uL PT 11.2 (10.0-12.5) sec INR 1.0 (<1.2) APTT 25.2 (22.0-30.0) sec Sodium 135 L (137-145) mmol/L Potassium 3.8 (3.5-5.1) mmol/L Chloride 105 (98-107) mmol/L Carbon Dioxide 24 (22-30) mmol/L Anion Gap 6 mmol/L BUN 11 (7-17) mg/dL Creatinine 0.57 (0.52-1.04) mg/dL Est GFR (CKD-EPI)AfAm >90 (>60 ml/min/1.73 sqM) Est GFR (CKD-EPI)NonAf >90 (>60 ml/min/1.73 sqM) Glucose 92 (74-99) mg/dL Calcium 9.2 (8.4-10.2) mg/dL Magnesium 1.8 (1.6-2.3) mg/dL Total Bilirubin 0.9 (0.2-1.3) mg/dL AST 35 (14-36) U/L ALT 43 H (4-34) U/L Alkaline Phosphatase 65 (38-126) U/L NT-Pro-B Natriuret Pep 99 pg/mL Total Protein 7.0 (6.3-8.2) g/dL Albumin 4.3 (3.5-5.0) g/dL Disposition Clinical Impression: Asthma exacerbation, Bronchitis Disposition: HOME SELF-CARE Condition: Stable Instructions (If sedation given, give patient instructions): Costochondritis (ED), Wheezing (ED) Additional Instructions: Please follow up with your primary care provider. Return to the emergency department for new or worsening symptoms. Prescriptions: predniSONE 50 mg PO DAILY #5 tab Azithromycin [Zithromax Z Pack] 0 tab PO DIRECTED #6 tab Is patient prescribed a controlled substance at d/c from ED?: No Referrals: Giovanny Torres MD [Primary Care Provider] - 1-2 days
[2024-08-30 16:15] LABS: Basophils # (A) 0.1 k/uL (0-0.2); Basophils % (A) 1 %; Eosinophils # (A) 0.4 k/uL (0-0.7); Eosinophils % (A) 3 %; Lymphocytes # (A) 1.8 k/uL (1.0-4.8); Lymphocytes % (A) 15 %; MCH 30.8 pg (25.0-35.0); MCHC 33.4 g/dL (31.0-37.0); MCV 92.3 fL (80.0-100.0); Mean Platelet Volume 8.5; Monocytes # (A) 0.5 k/uL (0-1.0); Monocytes % (A) 4 %; Neutrophils # (A) 9.4 k/uL (1.3-7.7); Neutrophils % (A) 77 %; Platelet Count 211 k/uL (150-450); RBC 4.55 m/uL (3.80-5.40); RDW 13.8 % (11.5-15.5); WBC 12.2 k/uL (3.8-10.6)
[2024-08-30] MEDS: methylPREDNISolone SOD SUCCI 125 MG/2 ML VIAL IV STA (16:24)
[2024-08-30 16:27] LABS: ALT 43 U/L (4-34); African American GFR (CKD) >90 (>60 ml/min/1.73 sqM); Albumin 4.3 g/dL (3.5-5.0); Anion Gap 6 mmol/L; Blood Urea Nitrogen 11 mg/dL (7-17); Calcium 9.2 mg/dL (8.4-10.2); Carbon Dioxide 24 mmol/L (22-30); Chloride 105 mmol/L (98-107); Glucose 92 mg/dL (74-99); Non-African American GFR(CKD) >90 (>60 ml/min/1.73 sqM); Sodium 135 mmol/L (137-145); Total Bilirubin 0.9 mg/dL (0.2-1.3)
[2024-08-30 16:30] LABS: Partial Thromboplastin Time 25.2 sec (22.0-30.0); Prothrombin Time 11.2 sec (10.0-12.5)
[2024-08-30] MEDS: IPRATROPIUM-ALBUTEROL 3 ML NEB INHALATION STA (16:30)
[2024-08-30 16:33] LABS: AST 35 U/L (14-36); Alkaline Phosphatase 65 U/L (38-126); Magnesium 1.8 mg/dL (1.6-2.3); Potassium 3.8 mmol/L (3.5-5.1)
[2024-08-30 16:36] LABS: NT-Pro-B-Type Natriuretic Pept 99 pg/mL
--- NOTE | 2024-08-30 16:48 | XR ---
EXAMINATION TYPE: XR chest 2V DATE OF EXAM: 08/30/2024 4:11 PM COMPARISON: Chest radiographs from 08/25/2024 CLINICAL INDICATION: Female, 39 years old with history of Chest Pain; TECHNIQUE: XR chest 2V Frontal and lateral views of the chest. FINDINGS: Lungs/Pleura: There is no evidence of pleural effusion, focal consolidation, or pneumothorax. Pulmonary vascularity: Unremarkable. Heart/mediastinum: Cardiomediastinal silhouette is unremarkable. Musculoskeletal: No acute osseous pathology. Other findings: None IMPRESSION: No acute cardiopulmonary disease/process. [facility], , 08/30/2024 4:46 PM
[2024-08-30 18:13] VITALS: BP 144/86; PULSE 81
== END 2024-08-30 18:13 | disposition home or self-care (01) ==
LOC: EC 14:19
DX: J40 Bronchitis, not specified as acute or chronic (principal); J44.1 Chronic obstructive pulmonary disease with (acute) exacerbation
CPT/HCPCS: 36415; 94640; 93005; 83880; 80053; 83735; 85025; 85610; 85730; 71046; 99285; 96374; J2919